=== PATIENT | female | born 1945 | race Caucasian/White ===

== ENCOUNTER 2017-11-29 12:39 | Observation (INO) ==
[~2017-11-29 12:39] MED LIST: rOPINIRole 4 MG TABLET PO PRN
[2017-11-29 15:01] LABS: Basophils % 0.1 % (0.0-0.8); Eosinophils # 0.1 10*3/uL (0.0-0.87); Eosinophils % 0.6 % (0.00-10.9); Hematocrit 37.8 VOL% (35.7-47.0); Hemoglobin 11.6 GM/DL (12.0-16.0); Immature Granulocytes % 0.5 %; Immature Granulocytes Absolute 0.04 #; Lymphocytes # 1.5 10*3/uL (1.4-4.0); Lymphocytes % 19.8 % (21.3-54.2); Mean Corpuscular HGB Conc 30.7 GM/DL (32-36); Mean Corpuscular Hemoglobin 23 PG (27-34); Mean Corpuscular Volume 73.8 FL (87-102); Mean Platelet Volume 9.4 FL (9.6-12.0); Monocytes # 0.5 10*3/uL (0.11-0.8); Monocytes % 5.8 % (1.7-12.7); Neutrophils # 5.6 10*3/uL (1.4-7.4); Neutrophils % 73.2 % (38.7-73.9); Platelet Count 194 T/CUMM (130-400); Red Blood Count 5.12 MC/CUMM (3.8-5.5); Red Cell Distribution Width 22.8 % (9.3-17.3); White Blood Count 7.7 T/CUMM (4-12)
[2017-11-29 15:10] LABS: INR 0.9
[2017-11-29 15:41] LABS: Alanine Aminotransferase 36 U/L (13-56); Alkaline Phosphatase 90 U/L (45-117); Aspartate Amino Transferase 45 U/L (0-37); Bilirubin,Total < 0.39 MG/DL (0.2-1.0); Blood Urea Nitrogen 8 MG/DL (7-18); Calcium 10.1 MG/DL (8.5-10.1); Glucose 142 MG/DL (74-106); Magnesium 2.1 MG/DL (1.8-2.4); Osmolality,Calculated 263.5 MOS/KG (273-304); Potassium 4.5 MMOL/L (3.5-5.1); Sodium 132 MMOL/L (136-145); Total Protein 7.6 G/DL (6.4-8.3); Troponin I Only < 0.015 NG/ML (0.00-0.045)
[2017-11-29] MEDS ORDERED: KETOROLAC 30 MG/1 ML VIAL IV STA (16:07)
[2017-11-29] MEDS ORDERED: ALUM/MAG/SIMETH/LIDO VISC 1:1 30 ML BOTTLE PO STA (16:07)
[2017-11-29] MEDS ORDERED: NITROGLYCERIN 2% OINT 1 INCH/GM PACK TOP STA (16:07)
[2017-11-29] MEDS ORDERED: ASPIRIN 325 MG TABLET PO STA (16:07)
[2017-11-29] MEDS ORDERED: ONDANSETRON 4 MG/2 ML VIAL IV STA (16:07)
[2017-11-29] MEDS ORDERED: NITROGLYCERIN 2% OINT 1 INCH/GM PACK TOP ONE (16:13)
[2017-11-29] MEDS ORDERED: ASPIRIN 325 MG TABLET ONE (16:13)
[2017-11-29] MEDS ORDERED: KETOROLAC 30 MG/1 ML VIAL ONE (16:13)
[2017-11-29] MEDS ORDERED: ALUM/MAG/SIMETH/LIDO VISC 1:1 30 ML BOTTLE PO ONE (16:13)
[2017-11-29] MEDS ORDERED: ONDANSETRON 4 MG/2 ML VIAL ONE (16:13)
[2017-11-29] MEDS ORDERED: METOPROLOL TARTRATE 25 MG TABLET PO STA (16:22)
[2017-11-29] MEDS ORDERED: METOPROLOL TARTRATE 25 MG TABLET ONE (16:38)
[2017-11-29] MEDS ORDERED: ZALEPLON 5 MG CAPSULE PO PRN (17:23)
[2017-11-29] MEDS ORDERED: ONDANSETRON 4 MG/2 ML VIAL IV PRN (17:23)
[2017-11-29] MEDS ORDERED: ACETAMINOPHEN 325 MG TABLET PO PRN (17:23)
[2017-11-29] MEDS ORDERED: INSULIN REGULAR 100 UNIT/ML SUBCUT ONE (17:23)
[2017-11-29] MEDS ORDERED: LABETALOL 20 MG/4 ML SYRINGE IV PRN (17:26)
[2017-11-29 17:27] LABS: Magnesium 2.1 MG/DL (1.8-2.4)
[2017-11-29 18:19] LABS: Risk Ratio 4.17; VLDL CHOLESTEROL 29.4 MG/DL
[2017-11-29] MEDS ORDERED: CYCLOBENZAPRINE 10 MG TABLET PO PRN (19:17)
[2017-11-29] MEDS ORDERED: ENOXAPARIN 40 MG/0.4 ML SYRINGE SUBCUT SCH (21:00)
[2017-11-29] MEDS: NITROGLYCERIN 2% OINT 1 INCH/GM PACK TOP SCH (21:03)
[2017-11-29] MEDS: METOPROLOL TARTRATE 25 MG TABLET PO SCH (21:06)
[2017-11-29] MEDS: hydrALAZINE 25 MG TABLET PO SCH (21:06)
[2017-11-29] MEDS: METOCLOPRAMIDE 10 MG TABLET PO SCH (21:06)
[2017-11-30] MEDS: NITROGLYCERIN 2% OINT 1 INCH/GM PACK TOP SCH ×4 (02:03→18:11)
[2017-11-30] MEDS ORDERED: LEVOTHYROXINE 112 MCG TABLET PO SCH (07:00)
[2017-11-30 08:57] LABS: Troponin I Only < 0.015 NG/ML (0.00-0.045)
[2017-11-30] MEDS ORDERED: SERTRALINE 100 MG TABLET PO SCH (09:00)
[2017-11-30] MEDS ORDERED: FERROUS SULFATE 325 MG TABLET PO SCH (09:00)
[2017-11-30] MEDS ORDERED: ASPIRIN EC 325 MG TABLET PO SCH (09:00)
[2017-11-30] MEDS ORDERED: PANTOPRAZOLE 40 MG TABLET PO SCH ×2 (09:00)
[2017-11-30] MEDS ORDERED: MULTIVITAMIN (CENTRUM) TABLET PO SCH (09:00)
[2017-11-30] MEDS ORDERED: ASCORBIC ACID 500 MG TABLET PO SCH (09:00)
[2017-11-30] MEDS ORDERED: MELOXICAM 7.5 MG TABLET PO SCH (09:00)
[2017-11-30] MEDS ORDERED: VALSARTAN/HCTZ 160-12.5 MG TABLET PO SCH (09:00)
[2017-11-30] MEDS ORDERED: MEMANTINE 5 MG TABLET PO SCH (09:00)
[2017-11-30] MEDS: hydrALAZINE 25 MG TABLET PO SCH (11:15)
[2017-11-30] MEDS ORDERED: REGADENOSON 0.4 MG/5 ML SYRINGE IV ONE (12:31)
[2017-11-30] MEDS: METOPROLOL TARTRATE 25 MG TABLET PO SCH (14:08)
[2017-11-30] MEDS: METOCLOPRAMIDE 10 MG TABLET PO SCH (14:10)
[2017-11-30] MEDS ORDERED: hydrALAZINE 25 MG TABLET PO SCH (15:00)
[2017-11-30 16:20] VITALS: BP 143/78
[2017-11-30] MEDS ORDERED: SIMVASTATIN 20 MG TABLET PO SCH (21:00)
[2017-12-01] MEDS ORDERED: ERGOCALCIFEROL 50,000 UNIT CAPSULE PO SCH (09:00)
== END 2017-11-30 18:55 | disposition home or self-care (01) ==
LOC: N.EDINP 12:39 → N.ED 12:39 → N.TELES 18:59
PROVIDERS: ADMIT Hospitalist; ATTEND Hospitalist

== ENCOUNTER 2019-03-14 07:27 | Inpatient (IN) ==
[2019-03-14] MEDS ORDERED: DIAZEPAM 5 MG TABLET PO ONE (08:14)
[2019-03-14] MEDS: SODIUM CHLORIDE 0.45% 1,000 ML IV SCH (08:36)
[2019-03-14] MEDS ORDERED: DIAZEPAM 5 MG TABLET ONE (08:39)
[2019-03-14 08:46] LABS: PT Patient Result 10.5 SECS; Partial Thromboplastin Time 24.8 SECS (0-40)
[2019-03-14 09:14] LABS: Basophils % 0.3 % (0.0-0.8); Hematocrit 18.4 VOL% (35.7-47.0); Immature Granulocytes % 0.5 %; Immature Granulocytes Absolute 0.02 #; Lymphocytes # 0.9 10*3/uL (1.4-4.0); Lymphocytes % 23.4 % (21.3-54.2); Mean Corpuscular HGB Conc 26.1 GM/DL (32-36); Mean Corpuscular Volume 64.1 FL (87-102); Monocytes % 7.6 % (1.7-12.7); NRBC # 0.02 10*3/uL; Neutrophils % 67.2 % (38.7-73.9); Platelet Count 141 T/CUMM (130-400); Red Blood Count 2.87 MC/CUMM (3.8-5.5); Red Cell Distribution Width 20.4 % (9.3-17.3); White Blood Count 3.8 T/CUMM (4-12)
[2019-03-14 09:18] LABS: Hemoglobin 4.8 GM/DL (12.0-16.0)
[2019-03-14 09:22] LABS: Hypochromasia 2+; Ovalocytes Slight
[2019-03-14 09:23] LABS: Platelet Estimate Adequate
[2019-03-14] MEDS ORDERED: ACETAMINOPHEN 325 MG TABLET PO PRN (10:29)
[2019-03-14] MEDS ORDERED: DEXTROSE 50% 25 GM/50 ML VIAL IV PRN (10:29)
[2019-03-14] MEDS ORDERED: GLUCAGON 1 MG VIAL IM PRN (10:29)
[2019-03-14 11:31] LABS: % Iron Saturation 1.6 % (18-50); Ferritin 4.6 ng/ml (8-252)
[2019-03-14 11:36] LABS: Albumin 3.6 G/DL (3.4-5.0); Bilirubin,Total 0.4 MG/DL (0.2-1.0); Calcium 9.4 MG/DL (8.5-10.1); Osmolality,Calculated 276.5 MOS/KG (273-304); Risk Ratio 3.27; Thyroid Stimulating Hormone 2.31 uIU/ml (0.358-3.74); Total Protein 6.7 G/DL (6.4-8.3); VLDL CHOLESTEROL 21.4 MG/DL
[2019-03-14] MEDS ORDERED: SODIUM CHLORIDE 0.9% 1,000 ML IV PRN (11:58)
[2019-03-14 11:59] LABS: PT Patient Result 10.6 SECS; Partial Thromboplastin Time 22.6 SECS (0-40)
[2019-03-14] MEDS ORDERED: INSULIN ASPART U SUBCUT SCH (12:00)
[2019-03-14 12:09] LABS: Albumin 3.7 G/DL (3.4-5.0); Bilirubin,Direct 0.11 MG/DL (0.0-0.20); Bilirubin,Indirect 0.3 MG/DL (0.0-1.0); Bilirubin,Total 0.4 MG/DL (0.2-1.0); Total Protein 6.9 G/DL (6.4-8.3)
[2019-03-14 12:12] LABS: Hematocrit 19.1 VOL% (35.7-47.0)
[2019-03-14] MEDS: INSULIN LISPRO 100 UNIT/ML SUBCUT SCH ×3 (12:51→21:34)
[2019-03-14] MEDS: PANTOPRAZOLE 40 MG VIAL IV SCH ×2 (13:37→21:33)
[2019-03-14 13:54] LABS: Hematocrit 18.1 VOL% (35.7-47.0)
[2019-03-14 13:59] LABS: Hemoglobin 4.8 GM/DL (12.0-16.0)
[2019-03-14] MEDS ORDERED: traZODone 50 MG TABLET PO SCH (19:00)
[2019-03-14] MEDS ORDERED: INSULIN GLARGINE 100 UNIT/ML SUBCUT SCH (21:00)
[2019-03-14] MEDS ORDERED: GABAPENTIN 300 MG CAPSULE PO SCH (21:00)
[2019-03-14] MEDS ORDERED: SIMVASTATIN 20 MG TABLET PO SCH (21:00)
[2019-03-14] MEDS: hydrALAZINE 25 MG TABLET PO SCH (21:32)
[2019-03-14] MEDS: METOPROLOL TARTRATE 25 MG TABLET PO SCH (21:32)
[2019-03-15] MEDS ORDERED: LEVOTHYROXINE 125 MCG TABLET PO SCH (06:30)
[2019-03-15 06:54] LABS: Basophils % 0.2 % (0.0-0.8); Eosinophils # 0.1 10*3/uL (0.0-0.87); Hematocrit 34.3 VOL% (35.7-47.0); Immature Granulocytes % 0.8 %; Immature Granulocytes Absolute 0.05 #; Lymphocytes # 1.6 10*3/uL (1.4-4.0); Lymphocytes % 26.1 % (21.3-54.2); Mean Corpuscular Volume 71.3 FL (87-102); Monocytes % 8.6 % (1.7-12.7); NRBC # 0.05 10*3/uL; Neutrophils % 62.3 % (38.7-73.9); Platelet Count 131 T/CUMM (130-400); Red Cell Distribution Width 24.4 % (9.3-17.3)
[2019-03-15 07:11] LABS: Red Blood Count 4.81 MC/CUMM (3.8-5.5); White Blood Count 5.9 T/CUMM (4-12)
[2019-03-15 07:12] LABS: Hemoglobin 10.3 GM/DL (12.0-16.0)
[2019-03-15 07:14] LABS: Calcium 9.5 MG/DL (8.5-10.1); Hypochromasia 1+; Osmolality,Calculated 273.8 MOS/KG (273-304)
[2019-03-15 07:32] LABS: Platelet Estimate Normal
[2019-03-15] MEDS: INSULIN LISPRO 100 UNIT/ML SUBCUT SCH ×3 (07:46→16:35)
[2019-03-15] MEDS: SODIUM CHLORIDE 0.45% 1,000 ML IV SCH (08:24)
[2019-03-15] MEDS: hydrALAZINE 25 MG TABLET PO SCH (08:34)
[2019-03-15] MEDS: PANTOPRAZOLE 40 MG VIAL IV SCH (08:34)
[2019-03-15] MEDS: METOPROLOL TARTRATE 25 MG TABLET PO SCH (08:34)
[2019-03-15] MEDS ORDERED: SERTRALINE 100 MG TABLET PO SCH (09:00)
[2019-03-15] MEDS ORDERED: amLODIPine 10 MG TABLET PO SCH (09:00)
[2019-03-15 15:57] VITALS: BP 189/71
== END 2019-03-15 16:40 | disposition home or self-care (01) | DRG 813 ==
LOC: N.RAD 07:27 → N.SDSINP 07:35 → SUATTDRO 10:30 → N.5E 10:30
PROVIDERS: ADMIT Hospitalist; ATTEND Hospitalist

== ENCOUNTER 2022-05-06 17:22 | Inpatient (IN) ==
[2022-05-06] MEDS ORDERED: SODIUM CHLORIDE 0.9% 500 ML IV STA (19:35)
[2022-05-06] MEDS ORDERED: KETOROLAC 30 MG/1 ML VIAL IV STA (19:35)
[2022-05-06] MEDS ORDERED: cloNIDine 0.1 MG TABLET PO STA (19:37)
[2022-05-06] MEDS ORDERED: hydrALAZINE 20 MG/1 ML VIAL IV STA (19:37)
[2022-05-06 21:20] LABS: Basophils % 0.1 % (0.0-0.8); Eosinophils % 0.3 % (0.00-10.9); Immature Granulocytes % 0.4 %; Immature Granulocytes Absolute 0.04 #; Lymphocytes # 0.9 10*3/uL (1.4-4.0); Lymphocytes % 7.8 % (21.3-54.2); Mean Corpuscular HGB Conc 33.3 GM/DL (32-36); Mean Corpuscular Volume 89.7 FL (87-102); Mean Platelet Volume 9.6 FL (9.6-12.0); Monocytes # 0.4 10*3/uL (0.11-0.8); Monocytes % 3.5 % (1.7-12.7); Neutrophils % 87.9 % (38.7-73.9); Platelet Count 123 T/CUMM (130-400); Red Blood Count 4.35 MC/CUMM (3.8-5.5); Red Cell Distribution Width 12.9 % (9.3-17.3); White Blood Count 11.3 T/CUMM (4-12)
[2022-05-06 21:31] LABS: PT Patient Result 10.9 SECS (10.5-12.0); Partial Thromboplastin Time 29.8 SECS (23.7-32.9)
[2022-05-06 21:47] LABS: Albumin 3.6 G/DL (3.4-5.0); Bilirubin,Total 0.4 MG/DL (0.20-1.00); Calcium 9.9 MG/DL (8.5-10.1); Osmolality,Calculated 273.4 MOS/KG (273-304); Potassium 4.1 MMOL/L (3.5-5.1); Total Protein 6.6 G/DL (6.4-8.2)
[2022-05-06] MEDS ORDERED: GLUCAGON 1 MG VIAL IM PRN (22:27)
[2022-05-06] MEDS ORDERED: ZALEPLON 5 MG CAPSULE PO PRN (22:27)
[2022-05-06] MEDS ORDERED: ONDANSETRON 4 MG/2 ML VIAL IV PRN (22:27)
[2022-05-06] MEDS ORDERED: diphenhydrAMINE CAP 25 MG CAPSULE PO PRN (22:27)
[2022-05-06] MEDS ORDERED: ACETAMINOPHEN 325 MG TABLET PO PRN (22:27)
[2022-05-06] MEDS ORDERED: NICOTINE 21 MG/24 HR PATCH TRANSDERM PRN (22:27)
[2022-05-06] MEDS ORDERED: guaiFENesin/DM ER 600-30 MG TABLET PO PRN (22:27)
[2022-05-06] MEDS ORDERED: HEPARIN 5,000 UNIT/1 ML VIAL SUBCUT SCH (22:30)
[2022-05-06] MEDS ORDERED: KETOROLAC 30 MG/1 ML VIAL IV PRN (22:34)
[2022-05-06] MEDS ORDERED: DEXTROSE 10% 250 ML BAG IV PRN (22:34)
[2022-05-06] MEDS: SODIUM CHLOR 0.9% KCL 40 MEQ 40 MEQ/1,000 ML BAG IV SCH (23:30)
[2022-05-07 04:39] LABS: Basophils % 0.1 % (0.0-0.8); Eosinophils % 0.1 % (0.00-10.9); Hematocrit 35.1 VOL% (35.7-47.0); Hemoglobin 11.8 GM/DL (12.0-16.0); Immature Granulocytes % 0.3 %; Immature Granulocytes Absolute 0.03 #; Lymphocytes # 0.8 10*3/uL (1.4-4.0); Lymphocytes % 7.6 % (21.3-54.2); Mean Corpuscular HGB Conc 33.6 GM/DL (32-36); Mean Corpuscular Volume 88.4 FL (87-102); Mean Platelet Volume 9.9 FL (9.6-12.0); Monocytes # 0.4 10*3/uL (0.11-0.8); Monocytes % 4.1 % (1.7-12.7); Neutrophils % 87.8 % (38.7-73.9); Platelet Count 126 T/CUMM (130-400); Red Blood Count 3.97 MC/CUMM (3.8-5.5); White Blood Count 10.4 T/CUMM (4-12)
[2022-05-07 05:13] LABS: Calcium 9.9 MG/DL (8.5-10.1); Osmolality,Calculated 275.1 MOS/KG (273-304); Potassium 4.1 MMOL/L (3.5-5.1)
[2022-05-07] MEDS ORDERED: ceFAZolin 2,000 MG/50 ML DUPLEX IV ONE (07:35)
[2022-05-07] MEDS: INSULIN LISPRO 100 UNIT/ML SUBCUT SCH ×4 (08:25→21:10)
[2022-05-07] MEDS: METOPROLOL TARTRATE 50 MG TABLET PO SCH ×2 (08:48→21:39)
[2022-05-07] MEDS: lisinopriL 20 MG TABLET PO SCH (08:48)
[2022-05-07] MEDS: hydrALAZINE 25 MG TABLET PO SCH ×3 (08:52→21:39)
[2022-05-07] MEDS: MEMANTINE 5 MG TABLET PO SCH ×2 (09:47→21:40)
[2022-05-07] MEDS: ISOSORBIDE DINITRATE 20 MG TABLET PO SCH ×3 (09:47→21:39)
[2022-05-07] MEDS: PANTOPRAZOLE 40 MG TABLET PO SCH (09:47)
[2022-05-07] MEDS: ASPIRIN 325 MG TABLET PO SCH (09:47)
[2022-05-07] MEDS: SERTRALINE 100 MG TABLET PO SCH (09:48)
[2022-05-07] MEDS ORDERED: ONDANSETRON 4 MG/2 ML VIAL ONE (11:29)
[2022-05-07] MEDS ORDERED: LIDOCAINE 2% 5 ML VIAL ONE (11:29)
[2022-05-07] MEDS ORDERED: SEVOFLURANE 1 UNIT/15 MINUTE INH ONE ×9 (11:29→15:15)
[2022-05-07] MEDS ORDERED: fentaNYL 100 MCG/2 ML VIAL ONE (11:29)
[2022-05-07] MEDS ORDERED: ROCURONIUM 50 MG/5 ML VIAL IV ONE (11:29)
[2022-05-07] MEDS ORDERED: propofoL 200 MG/20 ML VIAL IV ONE (11:29)
[2022-05-07] MEDS ORDERED: MIDAZOLAM 2 MG/2 ML VIAL ONE (11:29)
[2022-05-07] MEDS ORDERED: DEXAMETHASONE 4 MG/1 ML VIAL ONE (11:46)
[2022-05-07] MEDS ORDERED: ROPIVACAINE 0.5% 30 ML VIAL ONE (11:46)
[2022-05-07] MEDS ORDERED: LIDOCAINE 1% 5 ML VIAL ONE (11:46)
[2022-05-07] MEDS ORDERED: BACITRACIN OINT 0.9 GM PACK TOP ONE (12:03)
[2022-05-07] MEDS ORDERED: LACTATED RINGERS 1,000 ML IV SCH (12:30)
[2022-05-07] MEDS ORDERED: GLYCOPYRROLATE 0.4 MG/2 ML VIAL ONE (15:15)
[2022-05-07] MEDS ORDERED: NEOSTIGMINE 10 MG/10 ML VIAL ONE (15:15)
[2022-05-07] MEDS ORDERED: MORPHINE 2 MG/1 ML SYRINGE IV PRN ×2 (15:40)
[2022-05-07] MEDS ORDERED: MAGNESIUM HYDROXIDE SUSP 30 ML UDCUP PO PRN (15:41)
[2022-05-07] MEDS ORDERED: hydrALAZINE 20 MG/1 ML VIAL IV ONE ×2 (16:30→16:35)
[2022-05-07] MEDS ORDERED: LABETALOL 20 MG/4 ML SYRINGE IV ONE (16:55)
[2022-05-07] MEDS: LACTATED RINGERS 1,000 ML IV SCH (21:11)
[2022-05-07] MEDS: traZODone 50 MG TABLET PO SCH (21:39)
[2022-05-07] MEDS: GABAPENTIN 300 MG CAPSULE PO SCH (21:40)
[2022-05-07] MEDS: ceFAZolin 2,000 MG/50 ML DUPLEX IV SCH (22:57)
[2022-05-08 04:28] LABS: Basophils % 0.1 % (0.0-0.8); Hematocrit 32.1 VOL% (35.7-47.0); Hemoglobin 10.6 GM/DL (12.0-16.0); Immature Granulocytes % 0.6 %; Immature Granulocytes Absolute 0.09 #; Lymphocytes # 1.3 10*3/uL (1.4-4.0); Mean Corpuscular Volume 90.4 FL (87-102); Monocytes # 0.8 10*3/uL (0.11-0.8); Monocytes % 5.2 % (1.7-12.7); Neutrophils % 85.1 % (38.7-73.9); Platelet Count 138 T/CUMM (130-400); Red Blood Count 3.55 MC/CUMM (3.8-5.5); Red Cell Distribution Width 13.4 % (9.3-17.3); White Blood Count 14.9 T/CUMM (4-12)
[2022-05-08 04:40] LABS: Osmolality,Calculated 273.1 MOS/KG (273-304); Potassium 3.9 MMOL/L (3.5-5.1)
[2022-05-08] MEDS: ceFAZolin 2,000 MG/50 ML DUPLEX IV SCH (05:46)
[2022-05-08] MEDS: hydrALAZINE 20 MG/1 ML VIAL IV PRN (05:46)
[2022-05-08] MEDS: INSULIN LISPRO 100 UNIT/ML SUBCUT SCH ×4 (08:02→20:48)
[2022-05-08] MEDS: ISOSORBIDE DINITRATE 20 MG TABLET PO SCH ×3 (10:03→20:49)
[2022-05-08] MEDS: hydrALAZINE 25 MG TABLET PO SCH ×3 (10:03→20:49)
[2022-05-08] MEDS: ASPIRIN 325 MG TABLET PO SCH (10:03)
[2022-05-08] MEDS: METOPROLOL TARTRATE 50 MG TABLET PO SCH ×2 (10:04→20:49)
[2022-05-08] MEDS: SERTRALINE 100 MG TABLET PO SCH (10:04)
[2022-05-08] MEDS: PANTOPRAZOLE 40 MG TABLET PO SCH (10:04)
[2022-05-08] MEDS: lisinopriL 20 MG TABLET PO SCH (10:04)
[2022-05-08] MEDS: MEMANTINE 5 MG TABLET PO SCH ×2 (10:04→20:49)
[2022-05-08] MEDS: ENOXAPARIN 30 MG/0.3 ML SYRINGE SUBCUT SCH (10:18)
[2022-05-08] MEDS: SODIUM CHLOR 0.9% KCL 40 MEQ 40 MEQ/1,000 ML BAG IV SCH (20:08)
[2022-05-08] MEDS: LACTATED RINGERS 1,000 ML IV SCH (20:08)
[2022-05-08] MEDS: GABAPENTIN 300 MG CAPSULE PO SCH (20:49)
[2022-05-08] MEDS: traZODone 50 MG TABLET PO SCH (20:49)
[2022-05-09] MEDS: LACTATED RINGERS 1,000 ML IV SCH ×5 (00:57→23:16)
[2022-05-09] MEDS: hydrALAZINE 20 MG/1 ML VIAL IV PRN (04:35)
[2022-05-09 04:59] LABS: Basophils % 0.1 % (0.0-0.8); Hematocrit 27.3 VOL% (35.7-47.0); Hemoglobin 8.9 GM/DL (12.0-16.0); Immature Granulocytes % 0.5 %; Immature Granulocytes Absolute 0.04 #; Lymphocytes % 11.8 % (21.3-54.2); Mean Corpuscular HGB Conc 32.6 GM/DL (32-36); Mean Corpuscular Volume 92.2 FL (87-102); Mean Platelet Volume 9.6 FL (9.6-12.0); Monocytes # 0.7 10*3/uL (0.11-0.8); Monocytes % 7.7 % (1.7-12.7); Neutrophils % 79.9 % (38.7-73.9); Platelet Count 120 T/CUMM (130-400); Red Blood Count 2.96 MC/CUMM (3.8-5.5); Red Cell Distribution Width 13.3 % (9.3-17.3); White Blood Count 8.4 T/CUMM (4-12)
[2022-05-09 05:16] LABS: Calcium 8.7 MG/DL (8.5-10.1); Osmolality,Calculated 272.2 MOS/KG (273-304); Potassium 3.8 MMOL/L (3.5-5.1)
[2022-05-09] MEDS: hydrALAZINE 25 MG TABLET PO SCH ×3 (08:39→21:02)
[2022-05-09] MEDS: INSULIN LISPRO 100 UNIT/ML SUBCUT SCH ×4 (08:39→20:59)
[2022-05-09] MEDS: ASPIRIN 325 MG TABLET PO SCH (08:40)
[2022-05-09] MEDS: METOPROLOL TARTRATE 50 MG TABLET PO SCH ×2 (08:40→20:59)
[2022-05-09] MEDS: PANTOPRAZOLE 40 MG TABLET PO SCH (08:40)
[2022-05-09] MEDS: lisinopriL 20 MG TABLET PO SCH (08:40)
[2022-05-09] MEDS: SERTRALINE 100 MG TABLET PO SCH (08:40)
[2022-05-09] MEDS: MEMANTINE 5 MG TABLET PO SCH ×2 (08:40→21:00)
[2022-05-09] MEDS: ISOSORBIDE DINITRATE 20 MG TABLET PO SCH ×3 (08:40→20:59)
[2022-05-09] MEDS ORDERED: ACETAMINOPHEN 325 MG TABLET PO PRN (11:03)
[2022-05-09] MEDS: ENOXAPARIN 30 MG/0.3 ML SYRINGE SUBCUT SCH (11:31)
[2022-05-09] MEDS: FERROUS SULFATE 325 MG TABLET PO SCH (20:59)
[2022-05-09] MEDS: GABAPENTIN 300 MG CAPSULE PO SCH (20:59)
[2022-05-09] MEDS: rOPINIRole 1 MG TABLET PO SCH (20:59)
[2022-05-09] MEDS: traZODone 50 MG TABLET PO SCH (20:59)
[2022-05-10 05:14] LABS: Eosinophils # 0.1 10*3/uL (0.0-0.87); Eosinophils % 0.7 % (0.00-10.9); Hemoglobin 9.1 GM/DL (12.0-16.0); Immature Granulocytes % 0.7 %; Immature Granulocytes Absolute 0.05 #; Lymphocytes # 1.2 10*3/uL (1.4-4.0); Lymphocytes % 17.7 % (21.3-54.2); Mean Corpuscular HGB Conc 32.5 GM/DL (32-36); Mean Corpuscular Volume 91.8 FL (87-102); Mean Platelet Volume 10.4 FL (9.6-12.0); Monocytes # 0.5 10*3/uL (0.11-0.8); Monocytes % 6.9 % (1.7-12.7); Platelet Count 111 T/CUMM (130-400); Red Blood Count 3.05 MC/CUMM (3.8-5.5); Red Cell Distribution Width 13.2 % (9.3-17.3); White Blood Count 6.7 T/CUMM (4-12)
[2022-05-10 05:45] LABS: Calcium 8.4 MG/DL (8.5-10.1); Osmolality,Calculated 271.2 MOS/KG (273-304); Potassium 3.6 MMOL/L (3.5-5.1)
[2022-05-10] MEDS: INSULIN LISPRO 100 UNIT/ML SUBCUT SCH ×4 (08:59→20:50)
[2022-05-10] MEDS: METOPROLOL TARTRATE 50 MG TABLET PO SCH ×3 (09:01→22:33)
[2022-05-10] MEDS: PANTOPRAZOLE 40 MG TABLET PO SCH (09:01)
[2022-05-10] MEDS: ISOSORBIDE DINITRATE 20 MG TABLET PO SCH ×4 (09:01→22:33)
[2022-05-10] MEDS: hydrALAZINE 25 MG TABLET PO SCH ×4 (09:01→22:30)
[2022-05-10] MEDS: ASPIRIN 325 MG TABLET PO SCH (09:01)
[2022-05-10] MEDS: SERTRALINE 100 MG TABLET PO SCH (09:01)
[2022-05-10] MEDS: MEMANTINE 5 MG TABLET PO SCH ×3 (09:02→22:34)
[2022-05-10] MEDS: lisinopriL 20 MG TABLET PO SCH (09:02)
[2022-05-10] MEDS: FERROUS SULFATE 325 MG TABLET PO SCH ×3 (09:02→22:32)
[2022-05-10] MEDS: LORATADINE 10 MG TABLET PO SCH (09:05)
[2022-05-10] MEDS: ENOXAPARIN 30 MG/0.3 ML SYRINGE SUBCUT SCH (09:08)
[2022-05-10] MEDS: hydrALAZINE 20 MG/1 ML VIAL IV PRN ×2 (13:18→22:00)
[2022-05-10] MEDS: LACTATED RINGERS 1,000 ML IV SCH ×2 (13:18→15:31)
[2022-05-10] MEDS: GABAPENTIN 300 MG CAPSULE PO SCH ×2 (20:47→22:34)
[2022-05-10] MEDS: traZODone 50 MG TABLET PO SCH ×2 (20:48→22:33)
[2022-05-10] MEDS: rOPINIRole 1 MG TABLET PO SCH ×2 (20:48→22:34)
[2022-05-11] MEDS: LACTATED RINGERS 1,000 ML IV SCH (02:39)
[2022-05-11 05:03] LABS: Basophils % 0.1 % (0.0-0.8); Eosinophils % 0.6 % (0.00-10.9); Hemoglobin 8.4 GM/DL (12.0-16.0); Immature Granulocytes % 0.9 %; Immature Granulocytes Absolute 0.06 #; Lymphocytes # 1.1 10*3/uL (1.4-4.0); Lymphocytes % 16.3 % (21.3-54.2); Mean Corpuscular HGB Conc 32.3 GM/DL (32-36); Mean Corpuscular Volume 92.2 FL (87-102); Mean Platelet Volume 10.1 FL (9.6-12.0); Monocytes # 0.5 10*3/uL (0.11-0.8); Monocytes % 6.8 % (1.7-12.7); NRBC # 0.02 10*3/uL; Neutrophils % 75.3 % (38.7-73.9); Platelet Count 122 T/CUMM (130-400); Red Blood Count 2.82 MC/CUMM (3.8-5.5); Red Cell Distribution Width 12.9 % (9.3-17.3); White Blood Count 6.8 T/CUMM (4-12)
[2022-05-11 05:29] LABS: Calcium 8.5 MG/DL (8.5-10.1); Osmolality,Calculated 268.4 MOS/KG (273-304); Potassium 3.5 MMOL/L (3.5-5.1)
[2022-05-11 07:56] VITALS: BP 183/58
[2022-05-11] MEDS: ASPIRIN 325 MG TABLET PO SCH (09:48)
[2022-05-11] MEDS: SERTRALINE 100 MG TABLET PO SCH (09:48)
[2022-05-11] MEDS: ISOSORBIDE DINITRATE 20 MG TABLET PO SCH (09:48)
[2022-05-11] MEDS: METOPROLOL TARTRATE 50 MG TABLET PO SCH (09:48)
[2022-05-11] MEDS: INSULIN LISPRO 100 UNIT/ML SUBCUT SCH (09:48)
[2022-05-11] MEDS: MEMANTINE 5 MG TABLET PO SCH (09:49)
[2022-05-11] MEDS: lisinopriL 20 MG TABLET PO SCH (09:49)
[2022-05-11] MEDS: ENOXAPARIN 30 MG/0.3 ML SYRINGE SUBCUT SCH (09:49)
[2022-05-11] MEDS: LORATADINE 10 MG TABLET PO SCH (10:04)
[2022-05-11] MEDS: hydrALAZINE 25 MG TABLET PO SCH (10:04)
[2022-05-11] MEDS: FERROUS SULFATE 325 MG TABLET PO SCH (10:05)
[2022-05-11] MEDS: PANTOPRAZOLE 40 MG TABLET PO SCH (10:05)
== END 2022-05-11 11:24 | DRG 493 ==
LOC: EDUNIT# → EDBD → N.ED 17:22 → N.3E 22:27 → SUATTDRO 22:27 → N.3E 05-07 01:15
PROVIDERS: ADMIT Emergency Medicine; ATTEND Internal Medicine